=== PATIENT | female | born 1960 | race Caucasian/White ===

== ENCOUNTER 2022-07-09 08:00 | Outpatient (CLI) | payer MEDICARE, OTHER | END 2022-07-09 23:59 | disposition home or self-care (01) | LOC: LAB.N 08:00 | PROVIDERS: ATTEND Family Medicine | DX: R30.0 Dysuria (principal) | CPT/HCPCS: 87086; 87181 ==

== ENCOUNTER 2023-06-06 13:51 | Outpatient (CLI) | payer MEDICARE, OTHER ==
--- NOTE | 2023-06-06 16:33 | XRAY Report ---
PROCEDURE: Chest 2 View X-Ray INDICATIONS: COUGH TECHNIQUE: 2 views of the chest were acquired. COMPARISON: None. FINDINGS: Surgical changes and devices: Cervical fixation plate as well as sternal wires are present. Lungs and pleura: No pleural effusions or pneumothorax. Lungs are clear. Mediastinum: Mediastinal contours appear normal. Heart size is normal. Bones and chest wall: No suspicious bony lesions. Overlying soft tissues appear unremarkable. IMPRESSION: No acute cardiopulmonary process. Reviewed by: Rody Vargas MD on 06/06/2023 4:32 PM PDT Approved by: Rody Vargas MD on 06/06/2023 4:32 PM PDT Station ID: [id number]
== END 2023-06-06 13:52 | disposition home or self-care (01) ==
LOC: DI 13:51
PROVIDERS: ATTEND Nurse Practitioner Family
DX: R05.9 Cough, unspecified (principal)

== ENCOUNTER 2023-06-08 12:46 | Outpatient (CLI) | payer MEDICARE, OTHER ==
--- NOTE | 2023-06-15 09:33 | Mammography Report ---
BILATERAL DIGITAL SCREENING MAMMOGRAM 3D/2D: 06/08/2023 CLINICAL: Routine screening. No prior exams were available for comparison. Both breasts are heterogeneously dense, which may obscure small masses (category c / 51-75% glandular tissue). No significant masses, calcifications, or other findings are seen in either breast. IMPRESSION: NEGATIVE There is no mammographic evidence of malignancy. A 1 year screening mammogram is recommended. Based on the Tyrer Cuzick model (a risk assessment model) the patients lifetime risk is 6.3% and her 10 year risk is 2.9%. According to the ACR, ACS, and NCCN guidelines, an annual breast MRI exam john g with mammogram is recommended if the patients lifetime risk is 20% or greater. This exam was interpreted at Station ID: [id number]. NOTE: For mammograms, a report in lay terms will be sent to the patient. Approximately 15% of breast malignancies will not be visualized mammographically. In the management of a palpable breast mass, a negative mammogram must not discourage biopsy of a clinically suspicious lesion. Electronically Signed By: Justin borges/eveline:06/15/2023 08:30:30 letter sent: No_Letter ACR BI-RADS Category 1: Negative 3341F PARENCHYMAL PATTERN: (D) - The breast(s) demonstrate(s) heterogeneously dense fibroglandular alejandro ashby. BI-RADS CATEGORY: (1) - 1 Mammogram [id number] 1 year screening LATERALITY: (B)
== END 2023-06-08 12:47 | disposition home or self-care (01) ==
LOC: DI.N 12:46
PROVIDERS: ATTEND Nurse Practitioner Family
DX: Z12.31 Encounter for screening mammogram for malignant neoplasm of breast (principal); R92.333 Mammographic heterogeneous density, bilateral breasts

== ENCOUNTER 2023-06-22 08:57 | Outpatient (CLI) | payer MEDICARE, OTHER ==
--- NOTE | 2023-06-22 12:08 | CT Report ---
PROCEDURE: Low Dose Lung Cancer Screen INDICATIONS: CURRENT SMOKER TECHNIQUE: A CT scan of the chest was performed. Intravenous contrast media was not administered. Images were re corded and evaluated at appropriate window settings. Reformats: axial MIP of the chest, coronal and s agittal. For radiation dose reduction, the following was used: automated exposure control, adjustment of mA and/or kV according to patient size. COMPARISON: None. FINDINGS: Image quality: Excellent. Prior cancer history: None given Lungs and pleura: No pleural effusions. No pneumothorax. No suspicious pulmonary nodules which requi re follow up. Mediastinum: Midline sternotomy. Heart size is normal. Mild coronary artery calcifications. No perica rdial effusion. No large vessel abnormality. No mediastinal adenopathy by size criteria. Chest wall and lower neck: Thyroid is unremarkable. No axillary or supraclavicular adenopathy by size . Bones: No aggressive osseous abnormality. Lower cervical fusion hardware. Upper Abdomen: Remote cholecystectomy. Nonobstructing right renal stone.. IMPRESSION: No pulmonary nodules. Incidental note made of right renal stone. Lung RAD: 1 - Negative. Recommendation: Continue annual screening in 12 Months with LDCT Non-Lung Significant Findings: None. Reviewed by: Lucio Gonzalez MD on 06/22/2023 12:07 PM PDT Approved by: Lucio Gonzalez MD on 06/22/2023 12:07 PM PDT Station ID: [id number]
== END 2023-06-22 08:58 | disposition home or self-care (01) ==
LOC: DI 08:57
PROVIDERS: ATTEND Nurse Practitioner Family
DX: Z12.2 Encounter for screening for malignant neoplasm of respiratory organs (principal); F17.210 Nicotine dependence, cigarettes, uncomplicated

== ENCOUNTER 2023-08-01 10:48 | Outpatient (CLI) | payer MEDICARE, OTHER ==
--- NOTE | 2023-08-01 13:55 | XRAY Report ---
PROCEDURE: Cervical Spine 2 View INDICATIONS: Cervicalgia TECHNIQUE: 3 view(s) of the cervical spine were acquired. COMPARISON: None. FINDINGS: Bones: No fractures or dislocations to the C7-T1 level. The lateral masses of C1 appear intact on t he odontoid view. No suspicious bony lesions. Anterior fusion is present at C5-C7 with posterior fu ailyn at C4-5, C5-6 and C6-7. Hardware is intact without evidence of hardware fracture or periprosthet ic lucency to suggest loosening. Multilevel degenerative disc space narrowing is present as well as u ncovertebral arthropathy. Soft tissues: No prevertebral soft tissue swelling. IMPRESSION: Multilevel anterior posterior fusion with degenerative change. Reviewed by: Rody Vargas MD on 08/01/2023 1:54 PM [facility] Approved by: Rody Vargas MD on 08/01/2023 1:54 PM [facility] Station ID: [id number]
== END 2023-08-01 10:49 | disposition home or self-care (01) ==
LOC: DI.N 10:48
PROVIDERS: ATTEND Internal Medicine
DX: M47.812 Spondylosis without myelopathy or radiculopathy, cervical region (principal); Z98.1 Arthrodesis status

== ENCOUNTER 2023-08-28 10:48 | Outpatient (CLI) | payer MEDICARE, OTHER | END 2023-08-28 10:49 | disposition home or self-care (01) | LOC: RT 10:48 | PROVIDERS: ATTEND Nurse Practitioner Family | DX: R05.3 Chronic cough (principal); F17.210 Nicotine dependence, cigarettes, uncomplicated | CPT/HCPCS: 94010; 94729 ==

== ENCOUNTER 2023-09-15 14:49 | Outpatient (CLI) | payer MEDICARE, OTHER ==
--- NOTE | 2023-09-15 17:27 | Ultrasound Report ---
PROCEDURE: Bladder INDICATIONS: R CAROTID CALCIFACTION, URINARY HESITANCY TECHNIQUE: Real-time scanning was performed of the kidneys and bladder, with image documentation. COMPARISON: None FINDINGS: Kidneys: Not imaged Bladder: Pre-void bladder volume is 55.4 mL. Post-void residual is 1.3 mL. Pre-void images demonst rate no intraluminal masses or stones. On pre-void images, the right ureteral jet is noted with colo r Doppler interrogation. (Of note, ureteral jets may not be detectable in up to 25% of cases due to insufficient differences in specific gravity between ureteral and bladder urine). Miscellaneous: No free pelvic fluid. IMPRESSION: No significant post void residual. Reviewed by: Rina Munoz MD on 09/15/2023 5:26 PM PST Approved by: Rina Munoz MD on 09/15/2023 5:26 PM PST Station ID: [id number]
--- NOTE | 2023-09-16 13:39 | Ultrasound Report ---
PROCEDURE: Carotid Doppler Complete INDICATIONS: R CAROTID CALCIFACTION, URINARY HESITANCY TECHNIQUE: Color and pulse Doppler interrogation was performed of both carotid systems, with image documentation and velocity measurements. COMPARISON: None. FINDINGS: Right side: Brachial blood pressure: 124/61 mm Hg. Common carotid artery peak systolic velocity: 95 cm/sec. Internal carotid artery peak systolic velocity: 90 cm/sec. Internal carotid artery end diastolic velocity: 33 cm/sec. External carotid artery peak systolic velocity: 99 cm/sec. ICA/CCA peak systolic ratio: 0.9 . Singleton scale imaging description: Focal irregular polypoid calcification for length of 0.8 cm in the r ight carotid bulb causing subjective moderate luminal stenosis but no alteration in waveform or incre ase in velocity. There is a tandem, coarse eccentric calcified plaque in the carotid bulb for a lengt h of 1.0 cm. Percent internal carotid artery stenosis: Just less than 50% by velocity and waveform criteria. Vertebral artery: Flow direction is antegrade. Left side: Brachial blood pressure: 133/63 mm Hg. Common carotid artery peak systolic velocity: 93 cm/sec. Internal carotid artery peak systolic velocity: 111 cm/sec. Internal carotid artery end diastolic velocity: 34 cm/sec. External carotid artery peak systolic velocity: 56 cm/sec. ICA/CCA peak systolic ratio: 1.2 . Singleton scale imaging description: No significant plaque. Waveform analysis demonstrates delayed systol ic acceleration in the internal carotid artery and mild spectral broadening but no significant elevat ion of peak systolic velocity. Percent internal carotid artery stenosis: Less than 50%. Vertebral artery: Flow direction is antegrade. IMPRESSION: 1. In the right internal carotid artery, there is just less than 50% based on peak systolic velocity criteria. 2. In the left internal carotid artery, there is less than 50% based on peak systolic velocity criter ia. 3. Antegrade blood flow within the right vertebral artery. 4. Antegrade blood flow within the left vertebral artery. The estimate of stenosis included in the report of the imaging study was calculated using the IAC-end orsed standards of carotid artery stenosis. Reviewed by: Nina Hugo MD on 09/16/2023 1:38 PM PST Approved by: Nina Hugo MD on 09/16/2023 1:38 PM PST Station ID: [id number]
== END 2023-09-15 14:50 | disposition home or self-care (01) ==
LOC: DI 14:49
PROVIDERS: ATTEND Internal Medicine
DX: R93.89 Abnormal findings on diagnostic imaging of other specified body structures (principal); R39.11 Hesitancy of micturition
CPT/HCPCS: 93880

== ENCOUNTER 2023-11-03 09:42 | Outpatient (CLI) | payer MEDICARE, OTHER ==
--- NOTE | 2023-11-03 10:35 | Sleep Patient Instructions ---
Sleep Center Visit Summary - Patient Visit Information Reason for Visit: Initial consultation - Patient Instructions Additional Instructions: You will continue with CPAP therapy with pressure set at 4-20 cmH2O. A supply prescription will be sent to your new DME supplier. I have added a mask refitting to try a different mask. We encourage you to continue to try to lose weight. You will be completing a titration sleep study in our sleep lab where you will be sleeping with the CPAP machine on and we will be adjusting your pressures to find your optimal pressure settings. Once we have your results back, we will call you and schedule a follow up to go over the results. You will be called by our office staff to schedule your follow up, but you may contact us with any questions or issue as needed. - Clinic Information Contact: [facility] [address] [place] [id number] [email or web address] T: [phone]
--- NOTE | 2023-11-03 10:43 | SLEEP CARE CONSULTATION ---
Information from patient questionnaire entered by Merlene Bryan. I have reviewed and concur with the information entered by Merlene Bryan. This document represents the service I personally performed and the decisions made by me, Milly Larsen ARNP. History of Present Illness Service Date and Time: 11/03/2023 0942 Reason for Visit: New patient, Previously diagnosed sleep apnea, sleep apnea on CPAP therapy Chief Complaint: reports: Other (establish care) Usual bedtime: 8PM Time it takes to fall asleep: 30MIN Snores at night: Yes Observed to quit breathing while asleep: Yes Sleeps alone due to snoring: No Reasons for waking at night: reports: Pain, Other (DRY MOUTH) Toss, Turn, or Twitch while sleeping: No Recalls having dreams: Yes Usually gets out of bed at: 630-7AM Feels refreshed in the morning: No Morning headache: No Sleepy or fatigued during the day: Yes Ever fallen asleep while driving: No Takes day naps: Yes Dreams during day naps: Yes Prior sleep studies: Yes Year and Where: 2020 [facility] Additional HPI information: YENY PAN was previously diagnosed to have very severe, AHI 61.7, obstructive sleep apnea-hypopnea syndrome as seen in sleep study dated 01/19/2021 through [facility] and comes in today to establish care for CPAP therapy. - Parasomnia Symptoms Ever been unable to move upon waking from sleep: No Walks in sleep: No Talks in sleep: Yes Ever acted out dreams in sleep: Yes Ever felt weak in the knees when startled or emotional: No Bothered by creepy, crawly, restless sensations in legs: No Problems with memory or concentration: No CPAP Compliance Data - Data Reviewed with Patient Average duration of nightly device use: 9 hours 30 minutes Compliance rate %: 89 (83/90 days used) Current pressure setting (cmH2O): 8-14 (median 11.9, avg 13.7, max 13.8) Average residual AHI: 32.6 Central apnea: 12.9 Obstructive apnea: 16.3 Hypopnea: 0.2 Average large leak: 7.1 L/min Compliance data discussion: She has two ResMed Airsense 10 CPAP machines. One she received in 2020 from her DME supplier. She was getting supplies from [facility]. She is using a nasal cushion, ResMed AirFit N20, small cushion. She says the mask is causing soreness on the top of her nose and she would like to try a different style of mask. New 10: 7 hours 44 mins; days used; 10% Compliance; set at 4-20 cmH2O; AHI 10. Her CI 4.0, OI 3.5 and HI 0.3. She only used this as backup and when travelling in motor home. Subjective Missed days of use due to: reports: other (not sleeping) Patient concerns: reports: mask discomfort (soreness on nose), dry mouth, nose, throat (chronic severe dry mouth from medication), other. denies: aerophagia, air blowing in eyes, mask leak noise, condensation in mask/hose, nasal congestion, epistaxis Observed to snore while using device: No Current pressure setting perceived as: comfortable On therapy, patient: reports: other (not feeling refreshed or like sleeping well). denies: drowsiness while driving Initial [place] Sleepiness Scale score: 13 (10/31/23) Past Medical History Past Medical History: reports: Claustrophobia, Anxiety, Depression, Other (CHRONIC PAIN, KIDNEY STONES) Social History The patient's occupation is a RE. Patient is and lives in . Have you smoked in the past 12 months: Yes Cigarettes per day (20/pack): 5 Years of smokin Smoking Pack Years: 8.0 Alcohol use: No Caffeine use: Yes Caffeine amount and frequency: 4 CUPS DAILY AM Family History Family history of sleep disordered breathing: Yes Family Hx Sleep Apnea: Mother: Sleep apnea - Treated, Father: Snoring, Sleep apnea - Treated, Sibling: Snoring Allergies and Home Medications Known drug allergies: Yes (penicillin) Drug allergies reviewed: Yes Home medication list reviewed: Yes (as listed) Allergy and home medication list: Medications: Morphine 100 mg daily Oxycodone 10/325 mg, prn Gabapentin 600 mg, takes 1800 mg daily Sertraline 100 mg daily Baclofen 10 mg twice a day Topiramate 10 mg daily Tamulosin 0.4 mg daily Baby ASA daily Celebrex 200 mg daily Atorvastatin 40 mg daily Women's 50 Centrum Vitamin D 100 mg Benadryl 25 mg, prn Colace (OTC) Review of Systems Weight loss over past 5 years: 95 Cardiovascular: reports: leg or foot swelling. denies: high blood pressure Respiratory: reports: wheeze Neurological: denies: headaches Psychiatric: reports: anxiety, depression, claustrophobia Ear/Nose/Throat: reports: nasal congestion, dry mouth/throat, wisdom teeth removed Musculoskeletal: reports: joint pain, neck pain Physical Exam Vital signs obtained and entered by: MERLENE Wright MA Blood Pressure: 147/71 (RIGHT ARM) Cuff size: regular Heart Rate: 82 O2 Saturation: 99 Height: 5 ft 5.5 in Weight: 205 lb Body Mass Index: 33.5 BMI Classification: Obese Neck circumference: 15.75 Heart: regular rate and rhythm Lungs: clear bilaterally Impression and Plan 1. Obstructive Sleep Apnea-Hypopnea Syndrome, very severe, with good treatment compliance and fair apnea control with elevated residual AHI. On CPAP therapy, the patient has better sleep quality and is more rested overall. Patient's pressure setting is not optimal to control sleep apnea. I advised patient that a titration study will be next step to determine a more optimal pressure setting. They voiced understanding and agreement. She is getting a lot of soreness on her nose from her current mask and would like to try a different style of mask. Her current CPAP supplier is in [place] and she would like to change to a more local company. I will have my nurse coordinator inform of DME options. A DWO prescription will then be made and I will add a mask refitting. Patient advised to contact this office if further supply problems. Patient's apnea severity and rationale for treatment to reduce apnea, improve sleep quality and reduce cardiovascular and cerebrovascular events was reviewed. I also reviewed the benefit of consistent device use of CPAP for depression. 2. Obesity, unspecified. Currently patients BMI is 33.5. Obesity increases the risk of apnea, CPAP pressure requirements and overall health risks especially cardiovascular and diabetes. Thus patient is advised to lose weight. * Continue auto CPAP pressure at 4-20 cmH2O * Titration study * DME transfer * Update supply prescription * Notify me if snoring with mask or feeling that the pressure is too much or too little * Attempt to lose weight * Call this office if any problems using CPAP * Return for follow up after titration study, or sooner if concerns arise Counseling Topics: Spare mask, Weight loss health impact Prescriptions: Device supplies (with mask fitting and transfer DME) Follow up with Sleep Care in: other (after titration study) Plan: Titration study and followup Visit Type: In Office Time Spent with Patient (minutes): 42 Provider Statement: I spent 100% of the Face to Face Visit with the patient with greater than 50% spent counseling the patient and coordination of care.
[2023-11-03 10:53] VITALS: BP 147/71; O2SAT 99
== END 2023-11-03 09:43 | disposition home or self-care (01) ==
LOC: SC 09:42
PROVIDERS: ATTEND Nurse Practitioner Family
DX: G47.33 Obstructive sleep apnea (adult) (pediatric) (principal); E66.9 Obesity, unspecified; Z68.33 Body mass index [BMI] 33.0-33.9, adult; F17.210 Nicotine dependence, cigarettes, uncomplicated
CPT/HCPCS: 99203; G0463; 99212

== ENCOUNTER 2023-11-26 20:39 | Outpatient (CLI) | payer MEDICARE, OTHER | END 2023-11-26 20:40 | disposition home or self-care (01) | LOC: SC 20:39 | PROVIDERS: ATTEND Nurse Practitioner Family | DX: G47.33 Obstructive sleep apnea (adult) (pediatric) (principal) | CPT/HCPCS: 95811 ==

== ENCOUNTER 2023-12-13 09:01 | Outpatient (CLI) | payer MEDICARE, OTHER ==
--- NOTE | 2023-12-13 09:43 | Sleep Patient Instructions ---
Sleep Center Visit Summary - Patient Visit Information Reason for Visit: Titration study follow-up - Patient Instructions Additional Instructions: You were here for follow up of CPAP therapy. You will be continued on CPAP therapy with pressure at 4-8 cmH2O. Please let us know if the pressure change is uncomfortable and we can make further adjustments of the pressure. You should follow up with sleep care in 3 months. You may contact us sooner for any questions or concerns. - Clinic Information Contact: [facility] [address] [place] [id number] [email or web address] T: [phone]
--- NOTE | 2023-12-13 09:46 | SLEEP CARE CONSULTATION ---
Information from patient questionnaire entered by Merlene Bryan. I have reviewed and concur with the information entered by Merlene Bryan. This document represents the service I personally performed and the decisions made by , Milly Larsen ARNP. History of Present Illness Service Date and Time: 12/13/2023 09 Initial [place] Sleepiness Scale score: 13 (10/31/23) Current [place] Sleepiness Scale score: 13 (12/13/23) Additional HPI information: YENY PAN returns for follow up of a manual CPAP titration study performed on 11/26/2023. Previous study done on 01/19/2021 showed very severe obstructive sleep apnea with AHI 61.7. The patient was informed of the following polysomnography findings: CPAP was initiated at 5 cmH2O and titrated up to CPAP at 12 cmH2O. CPAP at 8 cmH2O appeared to be optimal (AHI of 2.6 per hour on the pressure). There was supine REM sleep on the pressure. Oxygen saturation was minimally low. Lower CPAP settings appeared adequate as well. Higher pressures caused air leak and respiratory events. The patient appeared to have tolerated positive airway pressure therapy very well. Patient does not drink alcohol. Patient was cautioned about risks of drowsy driving until sleepiness symptoms resolve. Patient denies drowsy driving. Sleep Study - Results Type of Sleep Study: Polysomnography (TITRATION F/U 11/26/23) Prior sleep studies: Yes Year and Where: 2020 [place] [facility] Polysomnography/Home Sleep Study results: IMPRESSION: The quality of the study is good. CPAP was initiated at 5 cmH2O and titrated up to CPAP at 12 cmH2O. CPAP at 8 cmH2O appeared to be optimal (AHI of 2.6 per hour on the pressure). There was supine REM sleep on the pressure. Oxygen saturation was minimally low. Lower CPAP settings appeared adequate as well. Higher pressures caused air leak and respiratory events. The patient appeared to have tolerated positive airway pressure therapy very well. The patients sleep efficiency was normal. The sleep architecture was relatively normal as well considering the first night effect. There was no periodic leg movement of sleep. Cardiac rhythm was normal sinus rhythm without significant arrhythmia. No abnormal behavior (parasomnia) observed during the night Allergies and Home Medications Known drug allergies: Yes (as listed) Drug allergies reviewed: Yes Home medication list reviewed: Yes (no changes) Allergy and home medication list: Allergies Penicillins Allergy (Verified 12/11/23 08:50) Review of Systems Review of systems same as previous: Yes (NO CHANGE) Physical Exam Vital signs obtained and entered by: MERLENE Wright MA Blood Pressure: 147/78 (LEFT ARM) Cuff size: regular Heart Rate: 85 O2 Saturation: 96 Height: 5 ft 5.5 in Weight: 206 lb 9.6 oz Body Mass Index: 33.8 BMI Classification: Obese Impression and Plan 1. Obstructive Sleep Apnea-Hypopnea Syndrome, very severe. Patient returns after titration study to review results and adjust pressures. Her optimal pressure was seen to be 8 cmH2O with average AHI at 2.6. Continuing positive pressure therapy could benefit anxiety and depression. The patient will be continued on nasal autoCPAP therapy with pressure set at 4-8 cmH2O. Compliance guidelines also reviewed. Patient's apnea severity and rationale for treatment to reduce apnea, improve sleep quality and reduce cardiovascular and cerebrovascular events was reviewed. 2. Obesity, unspecified. Currently patients BMI is 33.8. Obesity increases the risk of apnea, CPAP pressure requirements and overall health risks especially cardiovascular and diabetes. Thus patient is advised to lose weight. * Change auto CPAP pressure to 4-8 cmH2O * Notify me if snoring with mask or feeling that the pressure is too much or too little * Attempt to lose weight * Call this office if any problems using CPAP * Return for follow up in 3 months, or sooner if concerns arise Adjust device pressure to (cmH2O): 4-8 Counseling Topics: Weight loss health impact Prescriptions: Device supplies (with pressure change to 4-8 cmH2O) Follow up with Sleep Care in: 3 months Visit Type: In Office Time Spent with Patient (minutes): 20 Provider Statement: I spent 100% of the Face to Face Visit with the patient with greater than 50% spent counseling the patient and coordination of care.
[2023-12-13 09:52] VITALS: BP 147/78; O2SAT 96
== END 2023-12-13 09:02 | disposition home or self-care (01) ==
LOC: SC 09:01
PROVIDERS: ATTEND Nurse Practitioner Family
DX: G47.33 Obstructive sleep apnea (adult) (pediatric) (principal); E66.9 Obesity, unspecified; Z68.33 Body mass index [BMI] 33.0-33.9, adult
CPT/HCPCS: 99213; G0463; 99212

== ENCOUNTER 2024-03-13 09:27 | Outpatient (CLI) | payer MEDICARE, OTHER ==
--- NOTE | 2024-03-13 09:47 | Sleep Patient Instructions ---
Sleep Center Visit Summary - Patient Visit Information Reason for Visit: 3 month followup - Patient Instructions Additional Instructions: You were here for follow up of CPAP therapy. You will be continued on CPAP therapy with pressure at 5-10 cmH2O. You should follow up with sleep care in 1-2 months. You may contact us sooner for any questions or concerns. - Clinic Information Contact: [facility] [address] [place] [address] [email or web address] T: [phone]
--- NOTE | 2024-03-13 09:52 | SLEEP CARE CONSULTATION ---
Information from patient questionnaire entered by Merlene Bryan. I have reviewed and concur with the information entered by Merlene Bryan. This document represents the service I personally performed and the decisions made by , Milly Larsen ARNP. History of Present Illness Service Date and Time: 03/13/2024926 Previous diagnosis: Very Severe, Obstructive Sleep Apnea-Hypopnea Syndrome AHI: 61.7 (on 01/19/2021) Reason for follow up: three month Equipment type: CPAP (RESMED Airsense 10, s/u 01/2021) Equipment obtained from: Other ([facility]) Mask style: Nasal Backup mask available: No Last cushion change: 3 weeks Prior sleep studies: Yes Year and Where: 2020 [facility] Type of Sleep Study: Polysomnography HPI additional information: YENY PAN was diagnosed to have very severe, AHI 61.7, obstructive sleep apnea-hypopnea syndrome and returned today for CPAP therapy three month follow- up. Sleep Study - Results Type of Sleep Study: Polysomnography Prior sleep studies: Yes Year and Where: 2020 [facility] CPAP Compliance Data - Data Reviewed with Patient Average duration of nightly device use: 9 HRS 25 MINS Compliance rate %: 100 (12/12/23-03/10/24) Current pressure setting (cmH2O): 4-8 (median 7.7, avg 8, max 8) Average residual AHI: 19.5 Central apnea: 4.6 Obstructive apnea: 12.8 Hypopnea: 1.1 Average large leak: 1.4 L/min Subjective Patient concerns: reports: nasal congestion (all the time, has allergies). denies: aerophagia, mask discomfort, air blowing in eyes, mask leak noise, condensation in mask/hose, dry mouth, nose, throat, epistaxis Observed to snore while using device: No Current pressure setting perceived as: too low On therapy, patient: reports: other (no improvement yet). denies: drowsiness while driving Initial Erwin Sleepiness Scale score: 13 (10/31/23) Current Erwin Sleepiness Scale score: 13 (03/13/24) Allergies and Home Medications Known drug allergies: Yes (as listed) Drug allergies reviewed: Yes Home medication list reviewed: Yes (no changes) Allergy and home medication list: Allergies Penicillins Allergy (Verified 03/11/24 09:15) Review of Systems Review of systems same as previous: Yes (NO CHANGE) Physical Exam Vital signs obtained and entered by: MERLENE Wright MA Blood Pressure: 127/57 (RIGHT ARM) Cuff size: long Heart Rate: 74 O2 Saturation: 99 Height: 5 ft 5.5 in Weight: 208 lb 12.8 oz Body Mass Index: 34.2 BMI Classification: Obese Impression and Plan 1. Obstructive Sleep Apnea-Hypopnea Syndrome, very severe, with good treatment compliance and fair apnea control with elevated residual AHI. She has not noticed an improvement of her sleep quality or restfulness. Her has noticed her having some apneas when using the mask. She feels like the pressure is too low initially but air hunger resolves quickly. The patients pressure will be changed to autoCPAP 5-10 cmH20 for elevation of residual AHI. I will also turn off the ramp feature to improve inital air hunger. Patient advised to contact me if pressure change is uncomfortable so that it can be adjusted. Goals for apnea control discussed. Patient's apnea severity and rationale for treatment to reduce apnea, improve sleep quality and reduce cardiovascular and cerebrovascular events was reviewed. I also reviewed the benefit of consistent device use of CPAP for depression/anxiety. 2. Obesity, unspecified. Currently patients BMI is 34.2. Obesity increases the risk of apnea, CPAP pressure requirements and overall health risks especially cardiovascular and diabetes. Thus patient is advised to lose weight. * Change auto CPAP pressure to 5-10 cmH2O * Notify me if snoring with mask or feeling that the pressure is too much or too little * Attempt to lose weight * Call this office if any problems using CPAP * Return for follow up in 1-2 months, or sooner if concerns arise Adjust device pressure to (cmH2O): 5-10 Counseling Topics: Spare mask, Weight loss health impact Follow up with Sleep Care in: 1-2 months Visit Type: In Office Time Spent with Patient (minutes): 20 Provider Statement: I spent 100% of the Face to Face Visit with the patient with greater than 50% spent counseling the patient and coordination of care.
[2024-03-13 10:03] VITALS: BP 127/57; O2SAT 99
== END 2024-03-13 09:28 | disposition home or self-care (01) ==
LOC: SC 09:27
PROVIDERS: ATTEND Nurse Practitioner Family
DX: G47.33 Obstructive sleep apnea (adult) (pediatric) (principal); E66.9 Obesity, unspecified; Z68.34 Body mass index [BMI] 34.0-34.9, adult
CPT/HCPCS: 99213; G0463; 99212